=== PATIENT | female | born 1970 | race Hispanic/Latino ===

== ENCOUNTER → 2023-06-09 | Outpatient (CLI) | payer BC | END | disposition home or self-care (01) | LOC: RAH 08:38 | PROVIDERS: ATTEND Internal Medicine Gastroenterology | DX: R13.10 Dysphagia, unspecified (principal); R12 Heartburn; R06.6 Hiccough; K21.9 Gastro-esophageal reflux disease without esophagitis; Z90.49 Acquired absence of other specified parts of digestive tract | CPT/HCPCS: 74240 ==